=== PATIENT | male | born 1960 | race Caucasian/White ===

== ENCOUNTER 2023-12-27 10:41 | Emergency (ER) | payer BC ==
[2023-12-27 10:57] VITALS: TEMP 97.6
[2023-12-27] MEDS ORDERED: PROTONIX 40 MG IV IV ONE ×2 (11:17→11:25)
[2023-12-27] MEDS ORDERED: Sodium Chloride 0.9% 1000 ML 0 ML ONE (11:18)
[2023-12-27] MEDS: Sodium Chloride 0.9% 1000 ML 1,000 ML IV SCH (11:24)
[2023-12-27] MEDS: PROTONIX 40 MG IV IV ONE (11:25)
[2023-12-27] MEDS ORDERED: Sodium Chloride 0.9% 1000 ML 1,000 ML ONE (11:25)
[2023-12-27] MEDS ORDERED: Zofran 4 MG/2 ML VIAL ONE (11:36)
[2023-12-27] MEDS ORDERED: SUBLIMAZE 100 MCG/2 ML ONE (11:37)
[2023-12-27] MEDS: Zofran 4 MG/2 ML VIAL IV ONE (11:41)
[2023-12-27] MEDS: SUBLIMAZE 100 MCG/2 ML IV ONE (11:42)
[2023-12-27 12:18] LABS: Absolute Neutrophil Ct (ANC) 9.63 x10^3/uL (1.78-5.38); BASOPHIL % 0.3 % (0.2-1.2); Basophil (Absolute #) 0.04 x10^3/uL (0.01-0.08); Eosinophil % 0.3 % (0.8-7.0); Eosinophil (Absolute #) 0.03 x10^3/uL (0.04-0.54); Hematocrit 38.5 % (40.1-51.0); Hemoglobin 11.8 g/dL (13.7-17.5); IMMATURE GRAN # 0.05 x10^3u/L (0.001-0.031); IMMATURE GRAN % 0.4 % (0.001-0.429); Lymphocyte (Absolute #) 1.09 x10^3/uL (1.32-3.57); Lymphocytes % 9.1 % (21.8-53.1); Mean Cell Volume 92.8 fL (79.0-92.2); Mean Corpuscular Hemoglobin 28.4 pg (25.7-32.2); Mean Corpuscular Hgb Concent. 30.6 g/dL (32.3-36.5); Monocyte (Absolute #) 1.09 x10^3/uL (0.30-0.82); Monocytes % 9.1 % (5.3-12.2); Neutrophil % 80.8 % (34.0-67.9); Platelet Count 262 x10^3/uL (163-337); Red Blood Count 4.15 x10^6/uL (4.63-6.08); Red Cell Distribution Width 14.6 % (11.6-14.4); White Blood Count 11.9 x10^3/uL (4.23-9.07)
[2023-12-27 12:42] LABS: ALBUMIN 3.9 g/dL (3.5-5.0); BILIRUBIN,TOTAL 1.2 mg/dL (0.2-1.3); Calcium 9.2 mg/dL (8.4-10.2); Creatinine 1 0.93 mg/dL (0.66-1.25); EST GLOMERULAR FILTRATION RATE 92.8 ML/MIN; MAGNESIUM 1.9 mg/dL (1.6-2.3); Potassium 4.1 mmol/L (3.5-5.1); Total Protein 8.2 g/dL (6.3-8.2)
--- NOTE | 2023-12-27 13:56 | XRAY ---
Indication: Short of breath. Multiple contiguous axial images obtained through the chest without contrast. Comparison: None Heart is borderline enlarged. Aorta is normal in course and caliber. No pathologic mediastinal lymphadenopathy. Lungs demonstrate small left effusion with mild left lower lobe compressive atelectasis. Medial left upper lobe demonstrates subsegmental atelectasis/scarring. Tiny right posterior garter calcified granuloma. Remaining lungs demonstrates diffuse bilateral bullous pulmonary emphysema. Bony thorax intact with osteopenia and moderate multilevel degenerative spondylosis. CT abdomen/pelvis reported separately. Impression: 1. Borderline cardiomegaly with left effusion. Rule out cardiac decompensation/CHF. 2. Chronic findings including bullous pulmonary emphysema, right base calcified granuloma, and chronic bony findings.
--- NOTE | 2023-12-27 13:59 | ERPHSYRPT ---
- History of Present Illness Time Seen by Provider: 12/27/23 10:43 Historian: patient, family, EMS Exam Limitations: no limitations Patient Subjective Stated Complaint: C/O diarrhea that began last night with an intermittent dull aching abdominal pain. Denies N/V. Triage Nursing Assessment: Patient arrived by ambulance. He is alert and oriented; a little hard of hearing. LLE wrapped in a dressing; states home health nurse applied it just prior to coming to the ER today. 02 sats 91% on 02 @ 4L per patient arrival in ER; patient states he normally utilizes 02 @ 2L per N/C at home. No cough. Patient sitting up on side of bed; states increases pain in buttocks and SOB to ly down. Skin tone pale/yellow tinged. HOPKINS WNL for patient. Physician History: 63 years old male with history of hypertension, hyperlipidemia, atrial fibrillation/DVT on Eliquis, chronic respiratory failure on 2 L oxygen, congestive heart failure, chronic lower extremity swelling with venous stasis and some ulcerations, chronic anemia recently started on iron presented in the ER with dull aching generalized abdominal pain since yesterday with loose stool black-colored. Patient report he is not able to hold anything down. No fever or chills reported but generalized weakness fatigue and tiredness. Also reports increasing shortness of breath with lying down although swelling in the lower extremity is remarkably improved as compared to past and was recently admitted at [facility] for CHF exacerbation. Patient denies any chest pain or palpitations but has oxygen was in upper 80s with 2 L and increased to 4 L and currently in mid 90s. Allergies/Adverse Reactions: No Known Drug Allergies Allergy (Verified 12/27/23 10:43) Home Medications: Apixaban [Eliquis] 5 mg PO BID 12/27/23 [History] Cholecalciferol (Vitamin D3) [Vitamin D] 50,000 unit PO WEEKLY 12/27/23 [Hi story] Furosemide 20 mg [Lasix 20 mg] 20 mg PO DAILY 12/27/23 [History] Gabapentin [Neurontin ] 300 mg PO TID 12/27/23 [History] Metoprolol Succinate 50 mg [Toprol Xl 50 MG] 50 mg PO BID 12/27/23 [History] Multivitamin 1 tab PO DAILY 12/27/23 [History] Oxycodone HCl 5 mg Ir [Oxy-IR 5 MG] 7.5 mg PO Q4H PRN PRN 12/27/23 [History] Oxycodone HCl/Acetaminophen [Percocet 7.5-325 mg Tablet] 1 tab PO Q4HPRN PRN 12/27/23 [History] Potassium Chloride 20 meq PO DAILY 12/27/23 [History] Saccharomyces Boulardii [Daily Probiotic] 2 cap PO BID 12/27/23 [History] Tamsulosin HCl 0.4 mg [Flomax 0.4 MG] 0.4 mg PO HS 12/27/23 [History] Hx Tetanus, Diphtheria Vaccination/Date Given: Yes Immunizations Up to Date: Yes Travel Risk - International Travel Have you traveled outside of the country in past 3 weeks: No - Emerging Infectious Disease Are you exhibiting symptoms associated with any current EIDs: Yes Symptoms: Abdominal Pain, Diarrhea - Review of Systems Constitutional: No Symptoms Ears, Nose, & Throat: No Symptoms Respiratory: Dyspnea Cardiac: Edema Abdominal/Gastrointestinal: Abdominal Pain, Diarrhea Genitourinary Symptoms: No Symptoms Musculoskeletal: Arthralgias, Back Pain Skin: Rash, Skin Lesions Neurological: No Symptoms Endocrine: No Symptoms Immunological/Allergic: No Symptoms - Past Medical History Pertinent Past Medical History: Yes Cardiac History: Arrhythmia, Congestive Heart Failure, Hypertension GI Medical History: Other History: Renal Disease Male Reproductive Disorders: Prostate Problems Other Medical History: Atrial Fibrillation, Pulmonary Hypertention (sees cardiology at [facility] but can't remember the name), gait abnormalities, acute kidney failure with tubular necrosis, BLE cellulitis, leg wounds, sepsis, DVT, COVID - Past Surgical History Past Surgical History: Yes Gastrointestinal: Cholecystectomy - Social History Smoking Status: Former smoker Exposure to second hand smoke: No Drug Use: none - Social Determinants of Health Will the patient participate in the screening: Yes Do you worry about a steady place to live?: No Do you have any problems with any of the following?: No known problems In the past 12 months,have you had to go without utilities?: No Transportation Issues: No Has anyone in your support network made you feel unsafe?: No Have you or anyone in your house had to go without enough: No Comment: Living in an assisted living facility in [place], [place] ([facility]) - Nursing Vital Signs Nursing Vital Signs: Initial Vital Signs Temperature 97.6 F 12/27/23 10:47 Pulse Rate 100 H 12/27/23 10:47 Respiratory Rate 17 12/27/23 10:47 Blood Pressure 148/79 12/27/23 10:47 O2 Sat by Pulse Oximetry 91 L 12/27/23 10:47 Pain Scale Pain Intensity 0 - Physical Exam General Appearance: no apparent distress Eye Exam: PERRL/EOMI Ears, Nose, Throat Exam: normal ENT inspection Neck Exam: normal inspection, full range of motion Respiratory Exam: diminished breath sounds, No respiratory distress Cardiovascular Exam: regular rate/rhythm, normal heart sounds Gastrointestinal/Abdomen Exam: soft, normal bowel sounds, tenderness Extremity Exam: normal range of motion, pelvis stable Neurologic Exam: alert, oriented x 3, cooperative Skin Exam: normal color SpO2 Interpretation: O2 applied SpO2: 100 O2 Delivery: Nasal Cannula - Course EKG Interpreted by Me: RATE (97), A-fib, NORMAL AXIS, NORMAL INTERVALS, Right Bundle Branch Block, Non-specific ST Changes Ordered Tests: Active Orders 24 hr Category Date Time Status EKG-ER Only STAT Care 12/27/23 11:10 Active IV Insertion STAT Care 12/27/23 11:10 Active NPO (ED) STAT Care 12/27/23 11:10 Active ABDOMEN AND PELVIS W/0 CONTRAS [CT] Stat Exams 12/27/23 11:11 Completed CHEST WITHOUT CONTRAST [CT] Stat Exams 12/27/23 11:12 Completed BLOOD CULTURE Stat Lab 12/27/23 12:12 Received CBC W DIFF Stat Lab 12/27/23 11:00 Completed CMP Stat Lab 12/27/23 11:00 Completed CULTURE,URINE Stat Lab 12/27/23 16:12 Received LIPASE Stat Lab 12/27/23 11:00 Completed Lactic Acid Stat Lab 12/27/23 11:10 Completed MAGNESIUM Stat Lab 12/27/23 11:00 Completed NT PRO BNPII Stat Lab 12/27/23 11:00 Completed Occult Blood-Fecal Screen (Diagnostic) [OB-FECAL SCREEN Lab 12/27/23 16:30 Completed ] Stat TROPONIN Q4H Lab 12/27/23 11:00 Completed TROPONIN Q4H Lab 12/27/23 15:47 Completed TROPONIN Q4H Lab 12/27/23 19:15 Ordered UA W/RFX UR CULTURE Stat Lab 12/27/23 16:12 Completed Medication Summary Generic Name Dose Route Start Last Admin Trade Name Natividad PRN Reason Stop Dose Admin Sodium Chloride 1,000 mls @ 125 mls/hr 12/27/23 11:15 12/27/23 16:00 Sodium Chloride 0.9% 1000 Ml IV 01/26/24 11:14 Infused .Q8H ROBERT Infusion Discontinued Medications Generic Name Dose Route Start Last Admin Trade Name Natividad PRN Reason Stop Dose Admin Fentanyl Citrate 50 mcg 12/27/23 11:34 12/27/23 11:42 Fentanyl Citrate 100 Mcg/2 Ml* Vial IV 12/27/23 11:35 50 mcg STAT ONE Administration Fentanyl Citrate Confirm 12/27/23 11:37 Fentanyl Citrate 100 Mcg/2 Ml* Vial Administered 12/27/23 11:38 Dose 100 mcg .ROUTE .STK-MED ONE Ceftriaxone Sodium 2 gm in 100 mls @ 200 mls/hr 12/27/23 17:52 12/27/23 18:06 Rocephin 2 Gm/100 Ml Nacl IV 12/27/23 18:21 200 ml/hr STAT ONE 200 mls/hr Administration Ceftriaxone Sodium Confirm 12/27/23 18:03 Rocephin 2 Gm/100 Ml Nacl Administered 12/27/23 18:04 Dose 2 gm in 100 mls @ ud IV .STK-MED ONE Ondansetron HCl 4 mg 12/27/23 11:34 12/27/23 11:41 Ondansetron Hcl 4 Mg/2 Ml Vial IV 12/27/23 11:35 4 mg STAT ONE Administration Ondansetron HCl Confirm 12/27/23 11:36 Ondansetron Hcl 4 Mg/2 Ml Vial Administered 12/27/23 11:37 Dose 4 mg .ROUTE .STK-MED ONE Pantoprazole Sodium 80 mg 12/27/23 11:10 12/27/23 11:25 Pantoprazole 40 Mg Vial IV 12/27/23 11:11 80 mg STAT ONE Administration Pantoprazole Sodium Confirm 12/27/23 11:17 Pantoprazole 40 Mg Vial Administered 12/27/23 11:18 Dose 80 mg IV .STK-MED ONE Pantoprazole Sodium Confirm 12/27/23 11:25 Pantoprazole 40 Mg Vial Administered 12/27/23 11:26 Dose 80 mg IV .STK-MED ONE Lab/Rad Data: Laboratory Result Diagrams 12/27/23 11:00 12/27/23 11:00 Laboratory Results 12/27/23 12/27/23 12/27/23 Range/Units 16:30 16:12 15:47 WBC (4.23-9.07) x10^3/uL RBC (4.63-6.08) x10^6/uL Hgb (13.7-17.5) g/dL Hct (40.1-51.0) % MCV (79.0-92.2) fL MCH (25.7-32.2) pg MCHC (32.3-36.5) g/dL RDW (11.6-14.4) % Plt Count (163-337) x10^3/uL MPV (9.4-12.4) fL Gran % (34.0-67.9) % Immature Gran % (Auto) (0.001-0.429) % Nucleat RBC Rel Count (0.00-0.2) % Eos # (Auto) (0.04-0.54) x10^3/uL Immature Gran # (Auto) (0.001-0.031) x10^3u/L Absolute Lymphs (auto) (1.32-3.57) x10^3/uL Absolute Monos (auto) (0.30-0.82) x10^3/uL Absolute Nucleated RBC (0.00-0.012) x10^3u/L Lymphocytes % (21.8-53.1) % Monocytes % (5.3-12.2) % Eosinophils % (0.8-7.0) % Basophils % (0.2-1.2) % Absolute Granulocytes (1.78-5.38) x10^3/uL Basophils # (0.01-0.08) x10^3/uL Sodium (135-145) mmol/L Potassium (3.5-5.1) mmol/L Chloride (98-107) mmol/L Carbon Dioxide (22-30) mmol/L Anion Gap (5-15) MEQ/L BUN (9-20) mg/dL Creatinine (0.66-1.25) mg/dL Estimated GFR ML/MIN Glucose (74-106) mg/dL Lactic Acid (0.4-2.0) Calcium (8.4-10.2) mg/dL Magnesium (1.6-2.3) mg/dL Total Bilirubin (0.2-1.3) mg/dL AST (17-59) U/L ALT (0-50) U/L Alkaline Phosphatase (38-126) U/L Troponin I < 0.012 (0.000-0.033) ng/mL NT-Pro-B Natriuret Pep (<300) pg/mL Serum Total Protein (6.3-8.2) g/dL Albumin (3.5-5.0) g/dL Lipase (23-300) U/L Urine Color Dark Yellow (Yellow) Urine Appearance Turbid A (Clear) Urine pH 5.5 (4.6-8.0) Ur Specific [place] 1.015 (1.005-1.030) Urine Protein 100 A (Negative) Urine Glucose (UA) Negative (Negative) mg/dL Urine Ketones 15 A (Negative) Urine Blood Large A (Negative) Urine Nitrite Positive A (Negative) Urine Bilirubin Negative (Negative) Urine Urobilinogen 1.0 A (0.2) mg/dL Ur Leukocyte Esterase Large A (Negative) U Hyaline Cast (Auto) 20-50 (0-2) /LPF Urine Microscopic RBC 6-10 A (0-5) /HPF Urine Microscopic WBC >100 A (0-5) /HPF Ur Epithelial Cells Few (None Seen) /HPF Urine Bacteria Many A (None Seen) /HPF Urine Culture Reflexed YES (NO) Stl Occult Blood (IFOB) POSITIVE A (NEGATIVE) 12/27/23 12/27/23 12/27/23 Range/Units 11:10 11:00 11:00 WBC (4.23-9.07) x10^3/uL RBC (4.63-6.08) x10^6/uL Hgb (13.7-17.5) g/dL Hct (40.1-51.0) % MCV (79.0-92.2) fL MCH (25.7-32.2) pg MCHC (32.3-36.5) g/dL RDW (11.6-14.4) % Plt Count (163-337) x10^3/uL MPV (9.4-12.4) fL Gran % (34.0-67.9) % Immature Gran % (Auto) (0.001-0.429) % Nucleat RBC Rel Count (0.00-0.2) % Eos # (Auto) (0.04-0.54) x10^3/uL Immature Gran # (Auto) (0.001-0.031) x10^3u/L Absolute Lymphs (auto) (1.32-3.57) x10^3/uL Absolute Monos (auto) (0.30-0.82) x10^3/uL Absolute Nucleated RBC (0.00-0.012) x10^3u/L Lymphocytes % (21.8-53.1) % Monocytes % (5.3-12.2) % Eosinophils % (0.8-7.0) % Basophils % (0.2-1.2) % Absolute Granulocytes (1.78-5.38) x10^3/uL Basophils # (0.01-0.08) x10^3/uL Sodium 137 (135-145) mmol/L Potassium 4.1 (3.5-5.1) mmol/L Chloride 97 L (98-107) mmol/L Carbon Dioxide 28 (22-30) mmol/L Anion Gap 15.0 (5-15) MEQ/L BUN 27 H (9-20) mg/dL Creatinine 0.93 (0.66-1.25) mg/dL Estimated GFR 92.8 ML/MIN Glucose 88 (74-106) mg/dL Lactic Acid 1.7 (0.4-2.0) Calcium 9.2 (8.4-10.2) mg/dL Magnesium 1.9 (1.6-2.3) mg/dL Total Bilirubin 1.20 (0.2-1.3) mg/dL AST 28 (17-59) U/L ALT 21 (0-50) U/L Alkaline Phosphatase 95 (38-126) U/L Troponin I < 0.012 (0.000-0.033) ng/mL NT-Pro-B Natriuret Pep 1990 (<300) pg/mL Serum Total Protein 8.2 (6.3-8.2) g/dL Albumin 3.9 (3.5-5.0) g/dL Lipase 55 (23-300) U/L Urine Color (Yellow) Urine Appearance (Clear) Urine pH (4.6-8.0) Ur Specific [place] (1.005-1.030) Urine Protein (Negative) Urine Glucose (UA) (Negative) mg/dL Urine Ketones (Negative) Urine Blood (Negative) Urine Nitrite (Negative) Urine Bilirubin (Negative) Urine Urobilinogen (0.2) mg/dL Ur Leukocyte Esterase (Negative) U Hyaline Cast (Auto) (0-2) /LPF Urine Microscopic RBC (0-5) /HPF Urine Microscopic WBC (0-5) /HPF Ur Epithelial Cells (None Seen) /HPF Urine Bacteria (None Seen) /HPF Urine Culture Reflexed (NO) Stl Occult Blood (IFOB) (NEGATIVE) 12/27/23 Range/Units 11:00 WBC 11.9 H (4.23-9.07) x10^3/uL RBC 4.15 L (4.63-6.08) x10^6/uL Hgb 11.8 L (13.7-17.5) g/dL Hct 38.5 L (40.1-51.0) % MCV 92.8 H (79.0-92.2) fL MCH 28.4 (25.7-32.2) pg MCHC 30.6 L (32.3-36.5) g/dL RDW 14.6 H (11.6-14.4) % Plt Count 262 (163-337) x10^3/uL MPV 11.0 (9.4-12.4) fL Gran % 80.8 H (34.0-67.9) % Immature Gran % (Auto) 0.4 (0.001-0.429) % Nucleat RBC Rel Count 0.0 (0.00-0.2) % Eos # (Auto) 0.03 L (0.04-0.54) x10^3/uL Immature Gran # (Auto) 0.05 H (0.001-0.031) x10^3u/L Absolute Lymphs (auto) 1.09 L (1.32-3.57) x10^3/uL Absolute Monos (auto) 1.09 H (0.30-0.82) x10^3/uL Absolute Nucleated RBC 0.00 (0.00-0.012) x10^3u/L Lymphocytes % 9.1 L (21.8-53.1) % Monocytes % 9.1 (5.3-12.2) % Eosinophils % 0.3 L (0.8-7.0) % Basophils % 0.3 (0.2-1.2) % Absolute Granulocytes 9.63 H (1.78-5.38) x10^3/uL Basophils # 0.04 (0.01-0.08) x10^3/uL Sodium (135-145) mmol/L Potassium (3.5-5.1) mmol/L Chloride (98-107) mmol/L Carbon Dioxide (22-30) mmol/L Anion Gap (5-15) MEQ/L BUN (9-20) mg/dL Creatinine (0.66-1.25) mg/dL Estimated GFR ML/MIN Glucose (74-106) mg/dL Lactic Acid (0.4-2.0) Calcium (8.4-10.2) mg/dL Magnesium (1.6-2.3) mg/dL Total Bilirubin (0.2-1.3) mg/dL AST (17-59) U/L ALT (0-50) U/L Alkaline Phosphatase (38-126) U/L Troponin I (0.000-0.033) ng/mL NT-Pro-B Natriuret Pep (<300) pg/mL Serum Total Protein (6.3-8.2) g/dL Albumin (3.5-5.0) g/dL Lipase (23-300) U/L Urine Color (Yellow) Urine Appearance (Clear) Urine pH (4.6-8.0) Ur Specific [place] (1.005-1.030) Urine Protein (Negative) Urine Glucose (UA) (Negative) mg/dL Urine Ketones (Negative) Urine Blood (Negative) Urine Nitrite (Negative) Urine Bilirubin (Negative) Urine Urobilinogen (0.2) mg/dL Ur Leukocyte Esterase (Negative) U Hyaline Cast (Auto) (0-2) /LPF Urine Microscopic RBC (0-5) /HPF Urine Microscopic WBC (0-5) /HPF Ur Epithelial Cells (None Seen) /HPF Urine Bacteria (None Seen) /HPF Urine Culture Reflexed (NO) Stl Occult Blood (IFOB) (NEGATIVE) - Progress Progress: improved Progress Note: 12/27/23 16:27 63 years old is evaluated in ER for abdominal pain with nausea and diarrhea. Patient was also short of breath with lying. Is given gentle hydration of 500 ml along with Zofran, Protonix and pain medication, on reevaluation feeling much better. Initially patient oxygen saturation was increased to 4 L and later on decreased to 3 L with saturation in upper 90s. Has a white count of 11, hemoglobin 11.8, no previous comparison available. Normal renal functions. Normal lactate of 1.7 and negative troponin. BNP of 1989 and chest x-ray showing cardiomegaly with left pleural effusion. Patient swelling lower extremity is chronic which according to patient and family is much better than before. Is not in any distress. I have obtained CT abdomen pelvis as well which showed left mid ureteral 6 mm stone with hydroureter and moderate hydronephrosis from partial obstructive uropathy. Also has lymphadenopathy diffusely which could be reactive versus metastasis. Patient heart rate is bouncing between 90-1 10, EKG is A-fib rate controlled at a rate of [address] elevations. No urology services are available, patient wanted to go to [facility], I have discussed with Dr. Camilo, reviewed history, workup, cannot accept patient as he is not an established patient with [facility]. I have discussed with Dr. Del Toro [facility] urology, reviewed history, workup, agreed with transfer to hospitalist service and he will be a consult. Discussed with Dr. Zarate and patient is excepted for transfer. Discussed the results of workup and plan of transfer with patient and family in detail which they are understanding. 12/27/23 17:38 Does have UTI and started on Rocephin. Discussed with Dr.: [facility] Del [facility]o [facility], [facility] Counseled pt/family regarding: lab results, diagnosis, rad results - Departure Departure Disposition: Transfer Clinical Impression: Obstructive uropathy, Diarrhea, Atrial fibrillation, Acute UTI (urinary tract infection) Condition: Stable Critical Care Time: No Referrals: [facility] DIRECT[facility] [Primary Care Provider] - Follow up/PCP as directed
--- NOTE | 2023-12-27 14:04 | XRAY ---
Indication: Abdominal pain and diarrhea. Multiple contiguous axial images obtained through the abdomen and pelvis without contrast. Comparison: None CT chest reported separately. Noncontrasted stomach and bowel loops appear nonobstructed. Appendix not visualized. Right mid ureter demonstrates 6 mm calculus approximately L5 level. Mild right renal edema with moderate hydronephrosis and minimal hydroureter consistent with obstructive uropathy. Incidental 21.2 cm hepatomegaly, 15 cm splenomegaly, 1.7 x 2.7 cm right adrenal adenoma, and cholecystectomy. There are several prominent periaortic and pelvic retroperitoneal lymph nodes bilaterally, largest distal left iliac chain measuring 1.3 x 2.2 cm. Additional larger bilateral inguinal lymphadenopathy, largest on left measuring 2.3 x 5.0 cm. No free fluid/air. Remaining liver, pancreas, spleen, adrenal glands, kidneys, ureters, bladder, and aorta are unremarkable for noncontrast exam. Osseous structures intact with osteopenia, mild/moderate degenerative changes throughout spine, and moderate degenerative changes both hips. Impression: 1. 6 mm right mid ureteral calculus producing partial obstructive uropathy as detailed. 2. Prominent periaortic, retroperitoneal, and bilateral inguinal lymphadenopathy. Findings possibly reactive. Primary or metastatic malignancy not completely excluded. 3. Chronic findings including hepatosplenomegaly, right adrenal adenoma, and chronic bony findings.
[2023-12-27 16:23] LABS: Appearance Turbid (Clear); Bacteria Many /HPF (None Seen); Bilirubin Negative (Negative); Blood Large (Negative); Epithelial Cells Few /HPF (None Seen); Glucose, Urine Negative (Negative); Ketones 15 (Negative); Leukocyte Esterase Large (Negative); Nitrite Positive (Negative); Ph 5.5 (4.6-8.0); Protein,Urine Dip 100 (Negative); Specific Gravity 1.015 (1.005-1.030); WBC >100 /HPF (0-5)
[2023-12-27 16:28] LABS: Hyaline Casts 20-50 /LPF (0-2)
[2023-12-27 17:01] LABS: IFOB TEST RESULTS POSITIVE (NEGATIVE)
[2023-12-27] MEDS ORDERED: ROCEPHIN 2 GM/100 ML NACL 2 GM/100 ML IVPB IV ONE (18:03)
[2023-12-27] MEDS: ROCEPHIN 2 GM/100 ML NACL 2 GM/100 ML IVPB IV ONE (18:06)
[2023-12-27 19:23] VITALS: O2SAT 97
[2023-12-27 21:13] VITALS: BP 123/72; PULSE 87; RESP 18
== END 2023-12-27 21:12 | disposition short-term general hospital (02) ==
LOC: ED 10:41
DX: N13.2 Hydronephrosis with renal and ureteral calculous obstruction (principal); R19.7 Diarrhea, unspecified; I48.91 Unspecified atrial fibrillation; N39.0 Urinary tract infection, site not specified; R10.84 Generalized abdominal pain; R53.1 Weakness; I11.0 Hypertensive heart disease with heart failure; I50.9 Heart failure, unspecified; Z79.01 Long term (current) use of anticoagulants; Z79.891 Long term (current) use of opiate analgesic; Z79.899 Other long term (current) drug therapy
CPT/HCPCS: 36415; 71250; 74176; 80053; 81001; 82274; 83605; 83690; 83735; 83880; 84484; 85025; 87040; 87077; 87086; 87186; 93005; 96374; 96375; 99285; J0696; J2405; J3010; G0328